=== PATIENT | female | born 1990 | race Two or more races ===

== ENCOUNTER 2018-12-03 11:54 | Emergency (ER) | payer OTHER ==
--- NOTE | 2018-12-03 12:24 | ER Document Report ---
ED Medical Screen (RME) - General Chief Complaint: Vag Bleeding, +preg <12wks Stated Complaint: VAGINAL BLEEDING Time Seen by Provider: 12/03/18 12:16 Notes: Patient is a 28-year-old female G1, P0 who presents to the emergency department with a chief complaint of vaginal bleeding. Patient reports the first day of her last menstrual cycle was September 24. Patient reports she is about 10 weeks . Patient states she does go to the [facility] but does not have her first appointment until December 11. Patient reports vaginal bleeding that started 1 week ago after sexual intercourse. Patient reports that has always been a very light pink in color and only occurs with wiping. Patient states she became concerned this morning when she did develop lower abdominal cramping which was a new symptom. Patient states she is not having any urinary symptoms. Patient reports her last bowel movement was today and normal. Patient denies fever. - Related Data Allergies/Adverse Reactions: No Known Allergies Allergy (Verified 12/03/18 11:55) Past Medical History - Social History Chew tobacco use (# tins/day): No Frequency of alcohol use: None Drug Abuse: None Physical Exam - Vital signs Vitals: Temp Pulse Resp BP Pulse Ox 99.0 F 92 13 126/66 H 97 12/03/18 12:12/03/18 12:12/03/18 12:12/03/18 12:12/03/18 12:05 - Abdominal Inspection: Normal Distension: No distension Bowel sounds: Normal Tenderness: Nontender Organomegaly: No organomegaly Course - Re-evaluation Re-evalutation: 12/03/18 12:24 I have greeted and performed a rapid initial assessment of this patient. A comprehensive ED assessment and evaluation of the patient, analysis of test results and completion of the medical decision making process will be conducted by additional ED providers. - Vital Signs Vital signs: Temp Pulse Resp BP Pulse Ox 99.0 F 92 13 126/66 H 97 12/03/18 12:12/03/18 12:05 12/03/18 12:12/03/18 12:12/03/18 12:05
[2018-12-03 12:58] LABS: ABSOLUTE EOSINOPHILS # (AUTO) 0.1 10^3/uL (0.0-0.6); ABSOLUTE LYMPHOCYTES (AUTO) 2.6 10^3/uL (0.5-4.7); ABSOLUTE MONOCYTES (AUTO) 0.5 10^3/uL (0.1-1.4); ABSOLUTE NEUT (AUTO) 7.3 10^3/uL (1.7-8.2); BASOPHILS % (AUTO) 0.4 % (0-2); EOSINOPHILS % (AUTO) 0.8 % (0-6); HEMATOCRIT 36.3 % (36.0-47.0); HEMOGLOBIN 12.5 g/dL (12.0-15.5); LYMPHOCYTES % (AUTO) 24.4 % (13-45); MEAN CORPUSCULAR HEMOGLOBIN 30.7 pg (27.0-33.4); MEAN CORPUSCULAR HGB CONC 34.4 g/dL (32.0-36.0); MEAN CORPUSCULAR VOLUME 89 fl (80-97); MONOCYTES % (AUTO) 4.7 % (3-13); PLATELET COUNT 458 10^3/uL (150-450); RED BLOOD COUNT 4.07 10^6/uL (3.72-5.28); RED CELL DISTRIBUTION WIDTH 13.4 % (11.5-14.0); SEGMENTED NEUTROPHILS % (AUTO) 69.7 % (42-78); TOTAL CELLS COUNTED % (AUTO) 100 %; WHITE BLOOD COUNT 10.5 10^3/uL (4.0-10.5)
[2018-12-03 13:14] LABS: ALBUMIN 4.1 g/dL (3.5-5.0); ALKALINE PHOSPHATASE 60 U/L (38-126); ANION GAP 10 (5-19); ASPARTATE AMINO TRANSFERASE 17 U/L (14-36); BILIRUBIN,DIRECT 0.1 mg/dL (0.0-0.4); BILIRUBIN,TOTAL 0.3 mg/dL (0.2-1.3); BLOOD UREA NITROGEN 5 mg/dL (7-20); CALCIUM 9.3 mg/dL (8.4-10.2); CARBON DIOXIDE 24 mmol/L (22-30); CHLORIDE 104 mmol/L (98-107); GLUCOSE 98 mg/dL (75-110)
[2018-12-03 13:37] LABS: AMORPHOUS SEDIMENT,URINE TRACE /HPF; APPEARANCE,URINE CLEAR; BILIRUBIN,URINE NEGATIVE (NEGATIVE); COLOR,URINE YELLOW; GLUCOSE, URINE NEGATIVE (NEGATIVE); KETONES,URINE NEGATIVE (NEGATIVE); LEUKOCYTE ESTERASE,URINE NEGATIVE (NEGATIVE); NITRITE,URINE NEGATIVE (NEGATIVE); PROTEIN,URINE NEGATIVE (NEGATIVE); URINE SPECIFIC GRAVITY 1.012; UROBILINOGEN,URINE NEGATIVE mg/dL (<2.0)
--- NOTE | 2018-12-03 14:03 | RADIOLOGY REPORT (SQ) ---
EXAM DESCRIPTION: U/S OB TRANSVAG W/DOPPLER COMPLETED DATE/TIME: 12/03/2018 1:50 pm REASON FOR STUDY: , vaginal bleeding and cramping COMPARISON: None. TECHNIQUE: Transvaginal static and realtime grayscale images acquired of the pelvis. Additional fredi cted spectral and color Doppler images recorded. All images stored on PACs. bHCG: Pending. CLINICAL DATES: 10 week 0 day. LIMITATIONS: None. FINDINGS: FETUS: Single Living intrauterine . ULTRASOUND EGA: 9 week 2 day. ULTRASOUND ELISABET: 07/06/2019. EFW: Not applicable less than 20 weeks. CRL: 2.52 cm. FHR: 180 beats per minute. SURVEY: No visualized anomalies. AMNIOTIC FLUID: Adequate amount. PLACENTA: Not yet developed due to early gestation. SUBCHORIONIC BLEED: No. SIZE OF BLEED: Not applicable. UTERUS: No masses. No anomalies. CERVICAL LENGTH: 3.1 cm. Closed. RIGHT ADNEXA: Normal ovary with normal vascular flow. No adnexal free fluid. No adnexal masses. LEFT ADNEXA: Normal ovary with normal vascular flow. No adnexal free fluid. No adnexal masses. FREE FLUID: None. OTHER: No other significant finding. IMPRESSION: LIVING INTRAUTERINE . EGA 9 WEEK 2 DAY. Trimester of : First trimester - 0 to 13 weeks. TECHNICAL DOCUMENTATION: JOB ID: [id number] [employer]- All Rights Reserved rev-08/19 Reading location - IP/workstation name: [email or web address]
--- NOTE | 2018-12-03 14:57 | ER Document Report ---
Entered by ANITA CARBONE SCRIBE 12/03/18 [id number] Acting as scribe for:ABIGAIL ANNE MD ED GI/ - General Chief Complaint: Vag Bleeding, +preg <12wks Stated Complaint: VAGINAL BLEEDING Time Seen by Provider: 12/03/18 12:16 Mode of Arrival: Ambulatory Information source: Patient Notes: 28 year old female that presents to the emergency deaprtment today with complain ts of vaginal bleeding. Patient is approximately 9 weeks and is . Patient states x3 weeks ago she had a small amount of spotting for about 30 minutes, x2 weeks ago she had spotting again for about 20 minutes, and then for the last five days she has noticed intermittent dark spotting without passing clots. Patient denies any abdominal pain. Patient is O- blood type. The patient has a first appointment scheduled next week with the OB department at the [facility]. - Related Data Allergies/Adverse Reactions: No Known Allergies Allergy (Verified 12/03/18 11:55) Past Medical History - General Information source: Patient - Social History Smoking Status: Never Smoker Cigarette use (# per day): No Chew tobacco use (# tins/day): No Frequency of alcohol use: None Drug Abuse: None Lives with: Family Family History: Reviewed & Not Pertinent Patient has suicidal ideation: No Patient has homicidal ideation: No Review of Systems - Review of Systems Constitutional: No symptoms reported EENT: No symptoms reported Cardiovascular: No symptoms reported Respiratory: No symptoms reported Gastrointestinal: No symptoms reported Genitourinary: No symptoms reported Female Genitourinary: See HPI, , Vaginal bleeding Musculoskeletal: No symptoms reported Skin: No symptoms reported Hematologic/Lymphatic: No symptoms reported Neurological/Psychological: No symptoms reported -: Yes All other systems reviewed and negative Physical Exam - Vital signs Vitals: Temp Pulse Resp BP Pulse Ox 99.0 F 92 13 126/66 H 97 12/03/18 12:05 12/03/18 12:05 12/03/18 12:05 12/03/18 12:05 12/03/18 12:05 - Notes Notes: Physical Exam: General: Alert, obese. HEENT: Normocephalic. Atraumatic. PERRL. Extraocular movements intact. Oropharynx clear. Neck: Supple. Non-tender. Respiratory: No respiratory distress. Clear and equal breath sounds bilaterally. Cardiovascular: Regular rate and rhythm. Abdominal: Obese. Gravid female. Non-tender. No distension. Normal Bowel Sounds. Back: No gross abnormalities. Extremities: Moves all four extremities. Upper extremities: Normal inspection. Normal ROM. Lower extremities: Normal inspection. No edema. Normal ROM. Neurological: Normal cognition. AAOx4. Normal speech. Psychological: Normal affect. Normal Mood. Skin: Warm. Dry. Normal color. Course - Vital Signs Vital signs: Temp Pulse Resp BP Pulse Ox 99.0 F 92 13 126/66 H 97 12/03/18 12:05 12/03/18 12:05 12/03/18 12:05 12/03/18 12:05 12/03/18 12:05 - Laboratory Result Diagrams: 12/03/18 12:36 12/03/18 12:36 Laboratory results interpreted by me: 12/03/18 12/03/18 12/03/18 12:36 12:36 12:36 Plt Count 458 H BUN 5 L Creatinine 0.46 L Serum HCG, Qual POSITIVE H Beta HCG, Quant 59653.00 H Urine Blood 12/03/18 13:18 Plt Count BUN Creatinine Serum HCG, Qual Beta HCG, Quant Urine Blood SMALL H - Diagnostic Test Radiology reviewed: Reports reviewed - Ultrasound shows a 9-week 2-day viable intrauterine with heart rate of 180. There are no abnormalities reported. Discharge - Discharge Clinical Impression: with 9 completed weeks gestation, Vaginal bleeding in Condition: Stable Disposition: HOME, SELF-CARE Additional Instructions: Bleeding During Early You have been evaluated for passing blood while . While we take this symptom very seriously, most women with your degree of bleeding will go on to have a perfectly normal baby. At this time, there is no indication that a mi scarriage will occur. (A miscarriage occurs when the fetus is abnormal. There is no medicine or treatment to prevent it.) A more serious cause of bleeding is tubal . An ultrasound can show whether the is in the uterus or in the tube. Sometimes in early , no fetus is seen. In this case, careful follow-up, including repeat blood tests and repeat ultrasound, is necessary. You should rest in bed until the symptoms have resolved. Do not douche or have sex for at least a week, or until OK'd by the doctor. Don't use tampons. Call the doctor or return for re-examination if there is an increase in bleeding or cramping, extreme weakness, fainting, new abdominal pain, fever, or passage of tissue. Your ultrasound showed a 9-week 2-day intrauterine with a heart rate of 180. There were no other abnormalities reported. Your blood type is O-, you were given a RhoGam shot today. Be sure to drink plenty fluids and get plenty of rest. Follow-up with OB department at the [facility] as planned. RETURN TO THE EMERGENCY ROOM IF ANY NEW OR WORSENING SYMPTOMS. Scribe Attestation: 12/03/18 14:57 I personally performed the services described in the documentation, reviewed and edited the documentation which was dictated to the scribe in my presence, and it accurately records my words and actions. I personally performed the services described in the documentation, reviewed and edited the documentation which was dictated to the scribe in my presence, and it accurately records my words and actions.
[2018-12-03 15:22] VITALS: BP 117/58
== END 2018-12-03 15:51 | disposition home or self-care (01) ==
LOC: ER 11:54
DX: O20.9 Hemorrhage in early pregnancy, unspecified (principal); O99.211 Obesity complicating pregnancy, first trimester; E66.9 Obesity, unspecified; Z3A.09 9 weeks gestation of pregnancy
CPT/HCPCS: 99284; 96372; 86900; 86901; 36415; 86850; 84702; 84703; 85025; 80053; 81001; 76817; 93976; J2790